=== PATIENT | female | born 2000 | race African-American/Black ===

== ENCOUNTER 2019-02-15 11:24 | Emergency (ER) | payer OTHER ==
[2019-02-15 12:11] VITALS: BP 99/69; PULSE 66; TEMP 98.5; BMI 23.8
--- NOTE | 2019-02-15 12:45 | PDOC ---
History of Present Illness - General Chief Complaint: Cold Symptoms Stated Complaint: COLD SYMPTOMS Time Seen by Provider: 02/15/19 12:33 - History of Present Illness Initial Comments: 02/15/19 12:44 18-year-old female without comorbidities presents for 1 day of cough and itchy throat and nasal congestion no comorbidities no systemic symptoms she assures me there is no chance of Past History - Past Medical History Allergies/Adverse Reactions: Allergies Allergy/AdvReac Type Severity Reaction Status Date / Time Penicillins Allergy Intermediate Hives Verified 02/15/19 12:08 Home Medications: Ambulatory Orders Budesonide [Rhinocort Allergy] 1 spray NS ONCE #1 spray.pump 02/15/19 Cetirizine HCl/Pseudoephedrine [Zyrtec-D Tablet] 1 each PO DAILY #30 tab.er.12h 02/15/19 Asthma: No COPD: No Diabetes: No Seizures: No - Surgical History Abdominal Surgery: No Cardiac Surgery: No Lung Surgery: No Orthopedic Surgery: No - Suicide/Smoking/Psychosocial Hx Smoking History: Never smoked Have you smoked in the past 12 months: No Hx Alcohol Use: No Drug/Substance Use Hx: No Substance Use Type: None Hx Substance Use Treatment: No Review of Systems - Review of Systems Constitutional: No: Fever HEENTM: Yes: Nose Congestion Respiratory: Yes: Cough *Physical Exam - Vital Signs Last Vital Signs Temp Pulse Resp BP Pulse Ox 98.5 F 66 20 99/69 98 02/15/19 12:09 02/15/19 12:09 02/15/19 12:09 02/15/19 12:09 02/15/19 12:09 - Physical Exam Comments: 02/15/19 12:44 HEAD: NC/AT EYES: Conjuntiva clear Ears: Canals and TM's normal NOSE: No d/c THROAT: Moist mucous membrances, oral pharanx clear, uvula midline NECK: Supple without adenopathy CARDIAC: S1 S2 LUNGS: CTA Full and Equal breath sounds ABDOMEN: Soft NT ND MS: Full ROM in all joints without edema NEUROLOGIC: No gross sensory or motor deficits, NVID SKIN: Normal color and temperature no lesions or rashes Medical Decision Making - Medical Decision Making 02/15/19 12:44 We'll treat seasonal ALLERGIES with oral decongestant antihistamine and steroid all nasal spray follow-up with ENT *DC/Admit/Observation/Transfer Diagnosis at time of Disposition: Seasonal allergies - Discharge Dispostion Disposition: HOME Condition at time of disposition: Stable Decision to Admit order: No - Prescriptions Prescriptions: Budesonide [Rhinocort Allergy] 1 spray NS ONCE #1 spray.pump Cetirizine HCl/Pseudoephedrine [Zyrtec-D Tablet] 1 each PO DAILY #30 tab.er.12h - Referrals Referrals: Shankar Eden MD [Staff Physician] - - Patient Instructions Printed Discharge Instructions: Allergic Rhinitis Additional Instructions: Please take the antihistamine with decongestant as directed as well as use nasal spray. Return to the emergency room for worsening symptoms and follow-up with ear nose and throat doctor in 1-2 days for further evaluation and treatment options - Post Discharge Activity
== END 2019-02-15 13:04 | disposition home or self-care (01) ==
LOC: JERFT 11:24
DX: J30.2 Other seasonal allergic rhinitis (principal)
CPT/HCPCS: 99281-25

== ENCOUNTER 2020-11-04 15:58 | Emergency (ER) | payer OTHER ==
[2020-11-04 16:12] VITALS: BP 115/49; PULSE 82; TEMP 97.8; BMI 22.0
== END 2020-11-04 17:27 | disposition home or self-care (01) ==
LOC: JER 15:58
DX: R53.83 Other fatigue (principal); R43.8 Other disturbances of smell and taste; Z11.52 Encounter for screening for COVID-19
CPT/HCPCS: 99283-25; C9803; U0003

== ENCOUNTER 2020-11-06 10:09 | Emergency (ER) | payer OTHER ==
[2020-11-06 10:14] VITALS: BP 121/65; PULSE 72; TEMP 98.4; BMI 22.0
== END 2020-11-06 11:05 | disposition home or self-care (01) ==
LOC: JER 10:09
DX: U07.1 COVID-19 (principal)
CPT/HCPCS: 99284-25; C9803; U0003

== ENCOUNTER 2021-04-14 10:58 | Emergency (ER) | payer OTHER ==
[2021-04-14 11:39] VITALS: TEMP 98.2; BMI 23.6
[2021-04-14] MEDS ORDERED: ONDANSETRON 4 MG/2 ML VIAL IVPUSH ONE (12:47)
[2021-04-14] MEDS ORDERED: SODIUM CHLORIDE 0.9% 500 ML INFUS.BAG IV ONE ×2 (12:47→15:55)
[2021-04-14] MEDS ORDERED: FAMOTIDINE 20 MG/50 ML IVPB 20 MG/50 ML MG IVPB ONE ×2 (12:52→13:16)
[2021-04-14] MEDS ORDERED: ONDANSETRON 4 MG/2 ML VIAL ONE (13:16)
[2021-04-14 13:22] LABS: BASO % 0.2 % (0-2.0); EOS % 0.1 % (0-4.5); HEMATOCRIT 40.9 % (32.4-45.2); LYMPH % 3.5 % (8-40); MCH 30.8 pg (25.7-33.7); MCHC 34.2 g/dl (32.0-36.0); MEAN PLT VOLUME 10.6 fl (7.5-11.1); MONO % 4.1 % (3.8-10.2); NEUT % 92.1 % (42.8-82.8); PLATELET COUNT 130 10^3/uL (134-434); RBC 4.54 M/mm3 (3.60-5.2); RDW 12.7 % (11.6-15.6); WHITE BLOOD COUNT 8.1 K/mm3 (4.0-10.0)
[2021-04-14] MEDS ORDERED: ACETAMINOPHEN 1000 MG/100 ML VIAL (NON FORMULARY) IVPB ONE (13:48)
[2021-04-14 13:53] LABS: BLOOD UREA NITROGEN 12.5 mg/dL (7-18); CALCIUM 9.5 mg/dL (8.5-10.1)
[2021-04-14 13:54] LABS: ALBUMIN 4.8 g/dl (3.4-5.0)
[2021-04-14 13:56] LABS: CREATININE 0.9 mg/dL (0.55-1.3)
[2021-04-14 13:58] LABS: TOT PROT 8.7 g/dl (6.4-8.2)
[2021-04-14] MEDS ORDERED: ACETAMINOPHEN INJECTION 100 ML IVPB ONE (14:02)
[2021-04-14 14:52] LABS: ANISOCYTOSIS 0; MACROCYTOSIS 0; PLATELET ESTIMATE DECREASED
[2021-04-14 15:47] VITALS: BP 102/50; PULSE 100
[2021-04-14 15:51] LABS: URINE APPEARANCE CLEAR; URINE BILIRUBIN NEGATIVE (NEGATIVE); URINE COLOR YELLOW; URINE GLUCOSE (UA) NEGATIVE (NEGATIVE); URINE KETONE 2+ (NEGATIVE); URINE LEUK ESTERASE NEGATIVE (NEGATIVE); URINE NITRITE NEGATIVE (NEGATIVE); URINE PROTEIN NEGATIVE (NEGATIVE)
== END 2021-04-14 18:12 | disposition home or self-care (01) ==
LOC: JER 10:58
PROC: 3E0333Z Introduction of Anti-inflammatory into Peripheral Vein, Percutaneous Approach (ICD-10-PCS; principal; 2021-04-14)
PROC: 3E033GC Introduction of Other Therapeutic Substance into Peripheral Vein, Percutaneous Approach (ICD-10-PCS; 2021-04-14)
PROC: 3E033GC Introduction of Other Therapeutic Substance into Peripheral Vein, Percutaneous Approach (ICD-10-PCS; 2021-04-14)
DX: E80.7 Disorder of bilirubin metabolism, unspecified (principal); R11.2 Nausea with vomiting, unspecified
CPT/HCPCS: 36415; 76705-TC; 80053; 81003; 83690; 84703; 85025; 87086; 93005; 93010; 99285-25; C9803; J0131; U0003; U0005

== ENCOUNTER 2025-04-04 08:09 | Emergency (ER) | payer OTHER ==
[2025-04-04 08:20] VITALS: TEMP 98; BMI 19.8
[2025-04-04] MEDS ORDERED: ACETAMINOPHEN INJECTION 100 ML ONE (09:13)
[2025-04-04] MEDS ORDERED: ONDANSETRON 4 MG/2 ML VIAL ONE (09:14)
[2025-04-04] MEDS ORDERED: FAMOTIDINE 20 MG/50 ML IVPB 20 MG/50 ML MG IVPB ONE (09:14)
[2025-04-04 09:43] LABS: ABSOLUTE IMMATURE GRANULOCYTES 0.01 x10^3/uL (0.0-0.031); BASOPHILS # 0.03 x10^3/uL (0.01-0.08); EOSINOPHIL % 0.4 % (0.7-5.8); EOSINOPHILS # 0.02 x10^3/uL (0.04-0.36); MCHC 32.3 g/dl (32.2-35.5); MEAN CELL VOLUME 93.4 fl (79.4-94.8); MEAN PLT VOLUME 12.0 fl (9.4-12.3); MONOCYTE # 0.29 x10^3/uL (0.24-0.86); MONOCYTE % 5.8 % (4.7-12.5); RDW 12.8 % (12.1-16.5)
[2025-04-04] MEDS: ONDANSETRON 4 MG/2 ML VIAL IVPUSH ONE (09:46)
[2025-04-04 09:51] LABS: INR 1.13 (0.83-1.09); PROTHROMBIN TIME (PATIENT) 12.4 SEC (9.7-13.0)
[2025-04-04 09:54] LABS: ACTIVATED PTT 27.9 SECONDS (25.2-36.5)
[2025-04-04 10:05] LABS: EPI CELLS 29 /uL (0-25.1); HYALINE CASTS 1 /uL (0-3.1); URINE APPEARANCE CLOUDY; URINE BACTERIA 106 /uL (0-1359); URINE BILIRUBIN NEGATIVE (NEGATIVE); URINE COLOR YELLOW; URINE GLUCOSE (UA) NEGATIVE (NEGATIVE); URINE KETONE 2+ (NEGATIVE); URINE LEUK ESTERASE NEGATIVE (NEGATIVE); URINE NITRITE NEGATIVE (NEGATIVE); URINE PROTEIN 2+ (NEGATIVE); URINE UROBILINOGEN 1.0 mg/dL (0.2-1.0); URINE WBC 26 /uL (0-25.8)
[2025-04-04 10:26] LABS: URINE RBC 45.8 /uL (0-23.9)
[2025-04-04 10:57] VITALS: BP 101/48; PULSE 53; RESP 16
[2025-04-04] MEDS: ACETAMINOPHEN 1000 MG/100 ML BAG IVPB ONE (11:00)
[2025-04-04 11:01] LABS: CO2 25.0 mmol/L (21-32); GLUCOSE,RANDOM 96.0 mg/dL (74-106)
[2025-04-04] MEDS: FAMOTIDINE 20 MG/50 ML IVPB 20 MG/50 ML MG IVPB ONE (11:01)
[2025-04-04 11:04] LABS: CREATININE 0.8 mg/dL (0.55-1.3); SGOT/AST 34.0 U/L (15-37); SGPT/ALT 34.0 U/L (13-61)
[2025-04-04 11:05] LABS: TOT PROT 7.8 g/dl (6.4-8.2)
[2025-04-04 11:07] LABS: ALK PHOS 59.0 U/L (45-117)
[2025-04-04] MEDS: morphine CARPU-JECT 2 MG/1 ML DISP.SYRIN IVPUSH ONE (11:16)
[2025-04-04] MEDS ORDERED: KETOROLAC TROMETHAMINE 15 MG/ML VIAL ONE (11:48)
[2025-04-04] MEDS: KETOROLAC TROMETHAMINE 15 MG/ML VIAL IVPUSH ONE (11:58)
[2025-04-04] MEDS: SODIUM CHLORIDE 0.9% 500 ML INFUS.BAG IV ONE (11:58)
== END 2025-04-04 14:32 | disposition home or self-care (01) ==
LOC: JER 08:09
PROC: 3E033GC Introduction of Other Therapeutic Substance into Peripheral Vein, Percutaneous Approach (ICD-10-PCS; principal; 2025-04-04)
PROC: 3E033NZ Introduction of Analgesics, Hypnotics, Sedatives into Peripheral Vein, Percutaneous Approach (ICD-10-PCS; 2025-04-04)
PROC: 3E0333Z Introduction of Anti-inflammatory into Peripheral Vein, Percutaneous Approach (ICD-10-PCS; 2025-04-04)
PROC: 3E033GC Introduction of Other Therapeutic Substance into Peripheral Vein, Percutaneous Approach (ICD-10-PCS; 2025-04-04)
DX: S35.8X9A Unspecified injury of other blood vessels at abdomen, lower back and pelvis level, initial encounter (principal); R10.31 Right lower quadrant pain; R11.2 Nausea with vomiting, unspecified; R19.7 Diarrhea, unspecified; X58.XXXA Exposure to other specified factors, initial encounter
CPT/HCPCS: 36415; 74177-TC; 76705-TC; 80053; 81003; 83605; 83690; 84703; 85025; 85610; 85730; 86850; 86900; 86901; 87086; 99285-25; Q9967